=== PATIENT | male | born 1945 | race Caucasian/White ===

== ENCOUNTER 2023-12-01 08:26 | Emergency (ER) | payer OTHER, SELFPAY ==
[2023-12-01 08:30] VITALS: BP 131/75
--- NOTE | 2023-12-01 08:52 | ED.GENMED ---
History of Present Illness
General
Chief Complaint: Chest Pain
Source: patient
Time Seen by Provider: 12/01/23 08:51
Nursing documentation reviewed up to this point in time: agreed with
History of Present Illness
History of Present Illness:
78-year-old male with past medical history of MT sleep apnea V. tach with AICD and status post ablation, pneumonia in 2020/sepsis systolic heart failure
presents to the ER for evaluation of left-sided chest pain. Patient reports he was awoken around 3 AM with left-sided stabbing chest discomfort which has been intermittent since. He presently has pain when taking a deep breath. He denies any
actual shortness of breath. This morning he did cough up about a dime size area blood which is what prompted him to come to the ER. He is on ASA but no other blood thinners.
Past History
Past History
ED Past Medical History: CAD (ischemic cardiomyopathy with multiple episodes of cardiac arrest), Hypercholesterolemia, MT, Hypothyroidism, Psychiatric (major depression), Other (cholecystitis, heart failure, V. tach) and Other (obstructive sleep
apnea)
ED Past Surgical History: Appendectomy, Cardiac (heart attack, biventricular ICD/pacemaker, LAD stent placement), Orthopedic (cervical laminectomy), Tonsilectomy and Other (hemorrhoidectomy, umbilical and inguinal hernia repairs)
Social History
Tobacco: Former smoker
Alcohol: None
Drug: None
Personal:
Living: with family
Employment: Retired
Family History
Family History: Other (reviewed and Noncontributory)
Review of Systems
Review of Systems
Allergies reviewed?: Yes
Constitutional: Reports no symptoms; Denies fever, fatigue or chills
Respiratory: Reports hemoptysis and other (left side chest pain with deep breath )
Cardiac: Reports other (see above )
ABD/GI: Reports no symptoms
: Reports no symptoms
Musculoskeletal: Reports no symptoms
Skin: Reports no symptoms
Psychiatric: Reports no symptoms
Phy Exam
General Physical Exam
General Presentation: no apparent distress
General age: appears stated age
General Skin: warm and dry
General Habitus: normal
General Mental: alert
General Hydration: appears well hydrated
Cardiovascular Exam
Cardiovascular Exam: regular rate/rhythm, no murmur and normal peripheral pulses
Pulmonary Exam
Pulmonary Exam: no respiratory distress and other (slight crackles b/l bases )
Neurological Exam
Neurological Exam: alert and oriented x3
Musculoskeletal Exam
Musculoskeletal Exam: full ROM
Skin Exam
Skin Exam: normal color and warm/dry
Psychiatric Exam
Psychiatric Exam: normal mood/affect
Scores
Heart Score for Chest Pain Patients
STEMI patient?: Not applicable
Course
Orders/Labs/Results
Orders:
Orders
12/01/23 08:27
EKG [Electrocardiogram (*1)] Urgent
Reason for Study: Chest Pain
EKG- Treatment ONCE
12/01/23 08:52
Interrogate Pacemaker- Treatment ONCE
12/01/23 09:05
CT Chest Pe Study Urgent
Comment:
Reason For Exam: chest pain/hemoptysis
0.9% Sodium Chloride 1000 ml [Nss] 1,000 ml IV BOLUS
12/01/23 09:06
Cardiac Monitoring- Treatment ONCE
12/01/23 09:14
Complete Blood Count/With Diff Urgent
Comprehensive Metabolic Panel Urgent
Troponin I Urgent
12/01/23 11:06
CefTRIAXone [Rocephin] 1,000 mg IV NOW STA
12/01/23 11:07
Azithromycin 500 mg/250 ml [Zithromax Infusion] 500 mg in 250 ml IV NOW
12/01/23 12:03
PULMONARY CONSULT Routine
Consulting Provider: Humberto Harding
Was physician already notified: Yes
12/01/23 12:14
Acetaminophen [Tylenol] 1,000 mg PO NOW STA
12/01/23 15:34
Ibuprofen [Motrin] 600 mg PO NOW STA
Abnormal Lab Results
12/01/23
09:14
RBC 3.92 L 10^6/uL
(4.70-6.10)
Hgb 12.3 L g/dL
(13.0-18.0)
Hct 36.0 L %
(39.0-52.0)
MCH 31.4 H pg
(27.0-31.0)
Absolute Monos (auto) 0.8 H 10^3/uL
(0.1-0.6)
Monocytes % 13.5 H %
(1.7-9.3)
AST 12 L U/L
(17-59)
12/01/23 09:14
12/01/23 09:14
Vital Signs
Initial and Last Documented VS:
Initial Vital Signs
Temp Pulse Resp BP Pulse Ox
97.7 F 84 18 131/75 98
12/01/23 08:30 12/01/23 08:30 12/01/23 08:30 12/01/23 08:30 12/01/23 08:30
Last Documented Vital Signs
Temp Pulse Resp BP Pulse Ox
97.7 F 79 16 123/86 96
12/01/23 08:30 12/01/23 14:05 12/01/23 14:05 12/01/23 12:00 12/01/23 14:05
Welder Helper consulted with Physician
Welder Helper consulted with physician?: Yes
Name of Physician Consulted: laurie
MDM/Problems Addressed
Differential Diagnosis Includes:
Not limited to PE, pneumonia, chest wall pain
MDM/Problems Addressed:
As documented patient is a 78-year-old male with significant medical history noted blood thinners presenting for left-sided pleuritic pain that started at 3 AM worse with taking a deep breath and an episode of hemoptysis today. Patient was
nontachycardic nonhypoxic no fevers no recent cough. CAT scan was done to rule out PE however there is consolidation in the left lower lobe consistent for acute endobronchial impaction/pneumonia or left lobe cancer. Will treat with IV antibiotics
and admit for continued evaluation.
Patient was seen by admitting hospitalist who does feel that patient likely can be discharged and manage as an outpatient. as requested by admitting hospitalist pulmonology Dr. Rafa bustillos did evaluate patient and does feel the patient can go home on
Zithromax and Motrin however Zithromax does interfere with patient's amiodarone with prolongation of QT interval and QTc is 500. Will change to doxycycline as discussed with pulmonary. Patient is to follow-up with Dr. Fagan in the office and get
repeat CT chest in 6 weeks. Patient is to return if any worsening symptoms
Chronic conditions affecting care:
History of sepsis/pneumonia in 2019/significant cardiac history AICD V. tach
*Radiology
Radiology exam reviewed: radiology read reviewed
*Pulse Oximetry
Patient hypoxic: no
*Dump Grader Interpretation
Rate: normal
Heart Rate: 86
Rhythm: other (av paced )
*Critical Care Note
Total Time (30-74mins, 75-104mins- exclusive of procedures): Not Applicable
ED Attending Note
-
Portions of this chart may have been created with voice recognition software.� Occasional wrong word or��sound alike� substitutions may have occurred due to the inherent limitations of voice recognition software.
Discharge Plan
Departure
Patient Disposition: Home (Routine Discharge)
Date of Disposition: 12/01/23
Time of Disposition: 11:24
Admit to doctor: hospitalist
Patient with high blood pressure during this ER visit?: Yes
Covid-19: Not Applicable
Discharge Problem:
Pneumonia, Hemoptysis
Instructions: Pneumonia, Adult (DC), BLOOD PRESSURE
Prescriptions:
New
azithromycin [Zithromax] 250 mg tablet
250 mg PO DAILY Qty: 4 0RF
doxycycline hyclate 100 mg capsule
100 mg PO DAILY Qty: 14 0RF
No Action
escitalopram oxalate 10 MG tablet
10 mg PO DAILY
multivitamin 1 EACH tablet
1 ea PO DAILY
amiodarone [Pacerone] 200 MG tablet
200 mg PO SUTUTHSA
aspirin 81 MG tablet,delayed release (DR/EC)
81 mg PO DAILY
Repatha Syringe 140 mg/mL Syringe
140 mg SC Q2W
levothyroxine [Synthroid] 100 mcg Tablet
100 mcg PO DAILY
lisinopril 10 mg tablet
10 mg PO Q48H
Referrals:
Philippe Fagan MD [Active] -
Humberto Harding MD [Active] -
UNKNOWN - PT DOES,NOT KNOW [Family Provider] -
Activity Restrictions/Additional Instructions:
As discussed you were given doses of antibiotics here in the ER however a prescription for antibiotics was sent to your pharmacy take as directed. Please call Dr. Fagan's office on Monday morning for appointment for reevaluation the next several
days. You will also need a repeat CAT scan of the chest in the next 6 weeks.
Return if any worsening of symptoms if shortness of breath increased pain fever chills or if any increased or continued coughing of blood.
Interventions
Interventions:
*Risk Screen - Suicide Last Done: 12/01/23 08:30
*Neglect/Abuse Screening Last Done: 12/01/23 08:30
*ED COVID-19 Vaccine History Last Done: 12/01/23 08:30
*Nursing Disposition Last Done: 12/01/23 16:11
ED- Cardiac Assessment Last Done: 12/01/23 09:03
Discharge Date and Time
Discharge Date/Time: 12/01/23 16:11
Print Language: LEBANESE
[2023-12-01 09:03] VITALS: BMI 31.1
[2023-12-01] MEDS: NSS 1000 IV (09:19)
[2023-12-01 09:25] LABS: % Basophils 0.7 % (0-2); % Eosinophils 4.9 % (0-6); % Immature Granulocytes 0.5 % (0-0.5); % Lymphocytes 22.1 % (20.5-51.1); % Monocytes 13.5 % (1.7-9.3); % Neutrophils 58.3 % (42.2-75.2); Absolute Eosinophils 0.3 10^3/uL (0-0.7); Absolute Lymphocytes 1.3 10^3/uL (1.2-3.4); Absolute Monocytes 0.8 10^3/uL (0.1-0.6); Absolute Neutrophils 3.5 10^3/uL (1.4-6.5); Hemoglobin 12.3 g/dL (13.0-18.0); Mean Corp Hgb Conc. 34.2 g/dL (33.0-37.0); Mean Corpuscular Hgb 31.4 pg (27.0-31.0); Mean Corpuscular Volume 91.8 fL (80.0-94.0); Mean Platelet Volume 10.3 fL (7.4-10.4); Nucleated Red Blood Cells % 0 % (-); Platelet Count 204 10^3/uL (130-400); Red Blood Cell Count 3.92 10^6/uL (4.70-6.10); Red Cell Dist. Width 13.9 % (11.5-14.5); White Blood Cell Count 5.9 10^3/uL (4.8-10.8)
[2023-12-01 09:40] LABS: ALT (SGPT) 13 U/L (0-50); AST (SGOT) 12 U/L (17-59); Albumin 3.9 g/dl (3.5-5.0); Alkaline Phosphatase 67 U/L (38-126); Blood Urea Nitrogen 19 mg/dl (9-20); Calcium 9.1 mg/dl (8.4-10.2); Carbon Dioxide 26 mmol/L (22-30); Chloride 107 mmol/L (98-107); Estimated Creatinine Clearance 81 ml/min; Glucose 92 mg/dl (70-99); Potassium 4.1 mmol/L (3.5-5.1); Sodium 141 mmol/L (135-145); Total Bilirubin 0.8 mg/dl (0.2-1.3); Total Protein 6.4 g/dl (6.3-8.2); eGFR > 60.00
[2023-12-01 09:50] LABS: Troponin I < 0.012 ng/ml
[2023-12-01 10:15] VITALS: BP 129/86
[2023-12-01 11:00] VITALS: BP 132/83
[2023-12-01] MEDS: ROCEPHIN 1000 MG IV (11:31)
[2023-12-01] MEDS: ZITHROMAX INFUSION 250 IV (11:38)
[2023-12-01 12:00] VITALS: BP 123/86
[2023-12-01] MEDS: TYLENOL 1000 MG PO (12:16)
[2023-12-01] MEDS: MOTRIN 600 MG PO (15:37)
--- NOTE | 2023-12-01 15:37 | CON.HOSP ---
Family Physician
-
Family Physician: NOT KNOW UNKNOWN - PT DOES
Chief Complaint
-
Hemoptysis, left-sided chest pain
History of Present Illness
78-year-old male came into the emergency room today for evaluation of left-sided chest pain and 1 episode of hemoptysis. Symptoms woke him up early this morning around 3 AM. Denies any shortness of breath or significant cough. Denies fevers,
chills, night sweats, anorexia, weight loss. Known to the pulmonary service, sees a concrete form setter once a year. Has a history of incompletely treated latent tuberculosis.
No known history of malignancy. Remote history of smoking.
Medical History
Past Medical History
Past Medical History: Reports Other
Additional Past Medical History:
CAD
AIDE
Chronic heart failure reduced EF
Hyperlipidemia
Hypothyroidism
Major depression
Multiple episodes of cardiac arrest
Past Surgical History: Reports Appendectomy and Other
Additional Past Surgical History:
Biventricular ICD
Cervical laminectomy
Tonsillectomy
Umbilical and inguinal hernia repairs
Hemorrhoidectomy
Social History
Tobacco: Former Smoker
Alcohol: Occasional
Drug: None
Personal:
Living: With Family
Family History
Family History: Reviewed & Not Pertinent
Allergies / Home Medications
Allergies reflects when Allergies were last updated in [facility].
Home Medications with original date entered in [facility]
Allergy/Medication List:
Allergies
Allergy/AdvReac Type Severity Reaction Status Date / Time
Ckvxvqw-GAP-LtQ Reductase Allergy Leg Cramps Verified 12/01/23 08:39
Inhibitor
[Ktpohov-Jsc-Emw Reductase
Inhibitor]
Home Medications
escitalopram oxalate 10 mg tablet 10 mg PO DAILY High cholesterol 05/11/19
amiodarone 200 mg tablet (Pacerone) 200 mg PO SUTUTHSA Arrhythmia 11/24/19
aspirin 81 mg tablet,delayed release 81 mg PO DAILY Blood clot prevention/tx 11/24/19
multivitamin 1 ea PO DAILY Supplement 11/24/19
evolocumab 140 mg/mL subcutaneous syringe (Repatha Syringe) 140 mg SC Q2W 07/05/22
azithromycin 250 mg tablet (Zithromax) 250 mg PO DAILY #4 tabs 12/01/23
levothyroxine 100 mcg tablet (Synthroid) 100 mcg PO DAILY 12/01/23
lisinopril 10 mg tablet 10 mg PO Q48H 12/01/23
Review of Systems
-
History Source: Patient
A 12 point Review of Systems was completed except as noted: Yes
Respiratory: Reports Cough and Hemoptysis
Cardiac: Reports Chest Pain
Physical Exam
Vital Signs
Vital Signs
Temp Pulse Resp BP Pulse Ox
97.7 F 79 16 123/86 96
12/01/23 08:30 12/01/23 14:05 12/01/23 14:05 12/01/23 12:00 12/01/23 14:05
Physical Exam
General: Well Developed, Well Nourished, No Apparent Distress and Comfortable
HEENT: Normocephalic, Anicteric and Moist Mucous Membranes
Respiratory: Clear
Cardiac: S1/S2 and Regular Rhythm
GI: Soft, Non Tender and Non Distended
Musculoskeletal: No Clubbing, No Cyanosis and No Edema
Skin: Warm and Dry
Neuro: AO x 3
Hematologic/Lymphatic: No Lymphadenopathy
Psych: Calm
Laboratory Results
-
Laboratory Results
12/01/23 09:14
12/01/23 09:14
Total Bilirubin 0.8 mg/dl (0.2-1.3) 12/01/23 09:14
AST 12 U/L (17-59) L 12/01/23 09:14
ALT 13 U/L (0-50) 12/01/23 09:14
Alkaline Phosphatase 67 U/L (38-126) 12/01/23 09:14
Troponin I < 0.012 ng/ml 12/01/23 09:14
Impression / Plan
-
Left-sided chest pain -pleuritic. No evidence of pulmonary embolism on CT. Likely musculoskeletal pain. No rash on exam.
Watch for any evolving vesicles consistent with shingles. Can use NSAIDs as needed.
Lung nodule -noted on CT chest, 2 cm nodular airspace consolidation in the anterior medial basilar segment of the left lower lobe. Mild left-sided mediastinal and hilar lymphadenopathy noted. Moderate amount of dependent groundglass opacities in
the left upper and lower lobes.
Differential diagnosis includes infection versus malignancy. Discussed with pulmonary, Dr. Wiley. Plan to start a course of azithromycin for [address] chest in 6 to 8 weeks as an outpatient. Outpatient pulmonary follow-up.
Vital signs are normal, not hypoxic. WBC count is normal. No signs of sepsis.
Hemoptysis, mild -treat conservatively.
Okay to discharge from the emergency room. Discussed with pulmonary and ED department. Follow-up with PCP and pulmonary.
== END 2023-12-01 16:11 | disposition home or self-care (01) ==
LOC: EMR 08:26
PROVIDERS: Nurse Practitioner; CONSULT PHYSICIAN Internal Medicine Critical Care Medicine; EMERGENCY PHYSICIAN Emergency Medicine
DX: J18.9 Pneumonia, unspecified organism (principal); R04.2 Hemoptysis; I25.2 Old myocardial infarction; G47.33 Obstructive sleep apnea (adult) (pediatric); I25.10 Atherosclerotic heart disease of native coronary artery without angina pectoris; I25.5 Ischemic cardiomyopathy; I50.22 Chronic systolic (congestive) heart failure; E03.9 Hypothyroidism, unspecified; E78.00 Pure hypercholesterolemia, unspecified; Z79.82 Long term (current) use of aspirin; Z79.890 Hormone replacement therapy; Z86.74 Personal history of sudden cardiac arrest; Z87.891 Personal history of nicotine dependence; Z88.8 Allergy status to other drugs, medicaments and biological substances; Z90.49 Acquired absence of other specified parts of digestive tract; Z90.89 Acquired absence of other organs; Z95.5 Presence of coronary angioplasty implant and graft; Z95.810 Presence of automatic (implantable) cardiac defibrillator
CPT/HCPCS: 99284; 96365; 96375; 71275; 80053; 84484; 85025; 93005; Q9967

== ENCOUNTER → 2024-01-08 12:58 | Outpatient (REF) | payer OTHER, SELFPAY | LOC: RCS 12:58 | PROVIDERS: ATTENDING PHYSICIAN Nurse Practitioner Gerontology; FAMILY PHYSICIAN Internal Medicine | DX: I95.9 Hypotension, unspecified (principal); I50.22 Chronic systolic (congestive) heart failure; I25.5 Ischemic cardiomyopathy; I35.0 Nonrheumatic aortic (valve) stenosis | CPT/HCPCS: 93306 ==

== ENCOUNTER 2024-01-20 23:37 | Emergency (ER) | payer OTHER, SELFPAY ==
[2024-01-20 23:40] VITALS: BP 126/83
[2024-01-21] VITALS: BP 123/70
[2024-01-21 00:19] VITALS: BMI 30.1
[2024-01-21 00:48] LABS: % Basophils 0.5 % (0-2); % Eosinophils 5.5 % (0-6); % Immature Granulocytes 1.2 % (0-0.5); % Neutrophils 44.8 % (42.2-75.2); ALT (SGPT) 23 U/L (0-50); AST (SGOT) 19 U/L (17-59); Absolute Eosinophils 0.2 10^3/uL (0-0.7); Absolute Immature Granulocytes 0.1 10^3/uL (0-0.05); Absolute Lymphocytes 1.4 10^3/uL (1.2-3.4); Absolute Monocytes 0.7 10^3/uL (0.1-0.6); Absolute Neutrophils 1.9 10^3/uL (1.4-6.5); Alkaline Phosphatase 88 U/L (38-126); Blood Urea Nitrogen 17 mg/dl (9-20); Calcium 8.8 mg/dl (8.4-10.2); Carbon Dioxide 22 mmol/L (22-30); Chloride 109 mmol/L (98-107); Estimated Creatinine Clearance 64 ml/min; Glucose 97 mg/dl (70-99); Hematocrit 38.8 % (39.0-52.0); Hemoglobin 13.5 g/dL (13.0-18.0); Lipase 94 U/L (23-300); Mean Corp Hgb Conc. 34.8 g/dL (33.0-37.0); Mean Corpuscular Hgb 32.5 pg (27.0-31.0); Mean Corpuscular Volume 93.3 fL (80.0-94.0); Mean Platelet Volume 10.7 fL (7.4-10.4); Nucleated Red Blood Cells % 0 % (-); Platelet Count 168 10^3/uL (130-400); Potassium 3.6 mmol/L (3.5-5.1); Red Blood Cell Count 4.16 10^6/uL (4.70-6.10); Red Cell Dist. Width 13.9 % (11.5-14.5); Sodium 141 mmol/L (135-145); Total Bilirubin 0.3 mg/dl (0.2-1.3); Total Protein 6.4 g/dl (6.3-8.2); White Blood Cell Count 4.3 10^3/uL (4.8-10.8); eGFR > 60.00
[2024-01-21 01:00] VITALS: BP 117/64
[2024-01-21 01:00] LABS: Troponin I < 0.012 ng/ml
--- NOTE | 2024-01-21 01:06 | ED.GENMED ---
History of Present Illness
General
Chief Complaint: Abdominal Symptoms
Source: patient
Exam Limitations: none
Time Seen by Provider: 01/21/24 00:04
History of Present Illness
History of Present Illness:
79-year-old male with history of chronic bronchitis pneumonia since coronary artery disease has pacemaker presents with episode of shortness of breath earlier. He has been dealing with GI upset over the past 3 to 4 days. Today he could not seem to
calm down and he was laying in bed and got to the point where he was having trouble breathing and is hyperventilating. There is no chest pain. She presented here for evaluation. Time of my exam he states he feels much better.
Past History
Past History
ED Past Medical History: CAD (ischemic cardiomyopathy with multiple episodes of cardiac arrest), Hypercholesterolemia, [place], Hypothyroidism, Psychiatric (major depression), Other (cholecystitis, heart failure, V. tach) and Other (obstructive sleep
apnea)
ED Past Surgical History: Appendectomy, Cardiac (heart attack, biventricular ICD/pacemaker, LAD stent placement), Orthopedic (cervical laminectomy), Tonsilectomy and Other (hemorrhoidectomy, umbilical and inguinal hernia repairs)
Social History
Tobacco: Former smoker
Alcohol: None
Drug: None
Personal:
Living: with family
Employment: Retired
Family History
Family History: Other (reviewed and Noncontributory)
Phy Exam
Physical Exam
Physical Exam:
General: Well-appearing male no acute respiratory distress
HEENT: Normocephalic atraumatic
Heart: Regular rate and rhythm
Lungs: Clear no wheeze
Abdomen is soft nontender normal bowel sound
Extremities: No cyanosis or edema
Skin is warm no rash
Course
Orders/Labs/Results
Orders:
Orders
01/20/24 23:38
Electrocardiogram (*1) Urgent
Reason for Study: Shortness of Breath
EKG- Treatment ONCE
01/21/24 00:29
Complete Blood Count/With Diff Urgent
Comprehensive Metabolic Panel Urgent
Lipase Urgent
Troponin I Urgent
01/21/24 00:45
CR Chest - 2 Views Urgent
Comment:
Reason For Exam: sob
Abnormal Lab Results
01/21/24
00:29
WBC 4.3 L 10^3/uL
(4.8-10.8)
RBC 4.16 L 10^6/uL
(4.70-6.10)
Hct 38.8 L %
(39.0-52.0)
MCH 32.5 H pg
(27.0-31.0)
MPV 10.7 H fL
(7.4-10.4)
Abs Immat Gran (auto) 0.1 H 10^3/uL
(0-0.05)
Absolute Monos (auto) 0.7 H 10^3/uL
(0.1-0.6)
Immature Gran % 1.2 H %
(0-0.5)
Monocytes % 15.0 H %
(1.7-9.3)
Chloride 109 H mmol/L
(98-107)
01/21/24 00:29
01/21/24 00:29
Vital Signs
Initial and Last Documented VS:
Initial Vital Signs
Temp Pulse Resp BP Pulse Ox
97.9 F 82 20 126/83 99
01/20/24 23:40 01/20/24 23:40 01/20/24 23:40 01/20/24 23:40 01/20/24 23:40
Last Documented Vital Signs
Temp Pulse Resp BP Pulse Ox
97.9 F 70 27 122/71 95
01/20/24 23:40 01/21/24 02:00 01/21/24 02:00 01/21/24 02:00 01/21/24 02:00
MDM/Problems Addressed
Differential Diagnosis Includes:
Episode of shortness of breath now resolved. Question electrolyte abnormality versus pneumonia versus heart failure versus anxiety reaction
Will check labs, troponin EKG chest x-ray
*Critical Care Note
Total Time (30-74mins, 75-104mins- exclusive of procedures): Not Applicable
Update Note
Update Note:
Patient reevaluated no respiratory distress heart rate normal not hypoxic blood pressure stable chest x-ray clear labs reviewed and are negative. Pacemaker interrogation showed no significant events. No indication for any further intervention
admission to the hospital. Stable for discharge
ED Attending Note
-
Portions of this chart may have been created with voice recognition software.� Occasional wrong word or��sound alike� substitutions may have occurred due to the inherent limitations of voice recognition software.
Discharge Plan
Departure
Patient Disposition: Home (Routine Discharge)
Date of Disposition: 01/21/24
Time of Disposition: 02:30
Patient with high blood pressure during this ER visit?: No
Discharge Problem:
Fatigue
Instructions: Abdominal Pain
Prescriptions:
No Action
escitalopram oxalate 10 MG tablet
10 mg PO DAILY
multivitamin 1 EACH tablet
1 ea PO DAILY
amiodarone [Pacerone] 200 MG tablet
200 mg PO SUTUTHSA
aspirin 81 MG tablet,delayed release (DR/EC)
81 mg PO DAILY
Repatha Syringe 140 mg/mL Syringe
140 mg SC Q2W
levothyroxine [Synthroid] 100 mcg Tablet
100 mcg PO DAILY
lisinopril 10 mg tablet
10 mg PO Q48H
azithromycin [Zithromax] 250 mg tablet
250 mg PO DAILY Qty: 4 0RF
doxycycline hyclate 100 mg capsule
100 mg PO DAILY Qty: 14 0RF
Referrals:
Hubert Mariscal MD [Family Provider] -
Activity Restrictions/Additional Instructions:
Please return here for worsening symptoms otherwise follow-up with your doctor
Interventions
Interventions:
*Risk Screen - Suicide Last Done: 01/20/24 23:40
*General Assessment Last Done: 01/20/24 23:40
*Neglect/Abuse Screening Last Done: 01/20/24 23:40
ED- Fall Risk Assessment Last Done: 01/21/24 00:34
*ED COVID-19 Vaccine History Last Done: 01/20/24 23:40
ZT-Lplvtn-Kfsczlnivh Assessment Last Done: 01/21/24 00:30
Discharge Date and Time
Print Language: [id number]
[2024-01-21 02:00] VITALS: BP 122/71
[2024-01-21 03:00] VITALS: BP 106/56
== END 2024-01-21 03:15 | disposition home or self-care (01) ==
LOC: EMR 23:37
PROVIDERS: Physician Assistant; EMERGENCY PHYSICIAN Emergency Medicine; FAMILY PHYSICIAN Internal Medicine
DX: R53.83 Other fatigue (principal); R06.02 Shortness of breath; I25.10 Atherosclerotic heart disease of native coronary artery without angina pectoris; E78.00 Pure hypercholesterolemia, unspecified; E03.9 Hypothyroidism, unspecified; I25.2 Old myocardial infarction; Z86.74 Personal history of sudden cardiac arrest; Z87.891 Personal history of nicotine dependence; Z95.5 Presence of coronary angioplasty implant and graft; Z95.0 Presence of cardiac pacemaker; G47.33 Obstructive sleep apnea (adult) (pediatric)
CPT/HCPCS: 99285; 93288; 71046; 80053; 83690; 84484; 85025; 93005

== ENCOUNTER → 2024-01-31 09:56 | Outpatient (REF) | payer OTHER, SELFPAY | LOC: HWRAD 09:56 | PROVIDERS: ATTENDING PHYSICIAN Internal Medicine Critical Care Medicine; FAMILY PHYSICIAN Internal Medicine | DX: R91.1 Solitary pulmonary nodule (principal); A31.0 Pulmonary mycobacterial infection; Z22.7 Latent tuberculosis | CPT/HCPCS: 71250 ==

== ENCOUNTER 2024-12-16 10:52 | Emergency (ER) | payer OTHER, SELFPAY ==
[2024-12-16 11:12] VITALS: BP 144/82
[2024-12-16 11:41] LABS: Hematocrit 38.6 % (39.0-52.0); Hemoglobin 12.9 g/dL (13.0-18.0); Mean Corp Hgb Conc. 33.4 g/dL (33.0-37.0); Mean Corpuscular Volume 93.2 fL (80.0-94.0); Nucleated Red Blood Cells % 0 % (-); Platelet Count 244 10^3/uL (130-400); Red Cell Dist. Width 14.2 % (11.5-14.5)
[2024-12-16 12:00] LABS: INR 1.08; PT 14.3 Sec (11.4-14.6)
[2024-12-16 12:02] LABS: APTT 32.7 Sec (23.4-35.0)
[2024-12-16 12:08] LABS: Troponin I < 0.012 ng/ml
[2024-12-16 12:23] LABS: ALT (SGPT) 12 U/L (0-50); AST (SGOT) 12 U/L (17-59); Albumin 4.2 g/dl (3.5-5.0); Alkaline Phosphatase 81 U/L (38-126); Blood Urea Nitrogen 18 mg/dl (9-20); Calcium 9.0 mg/dl (8.4-10.2); Carbon Dioxide 23 mmol/L (22-30); Chloride 107 mmol/L (98-107); Glucose 94 mg/dl (70-99); Potassium 4.4 mmol/L (3.5-5.1); Sodium 136 mmol/L (135-145); Total Protein 7.2 g/dl (6.3-8.2); eGFR > 60.00
[2024-12-16 14:34] VITALS: BP 146/77
[2024-12-16 15:00] VITALS: BP 136/79
--- NOTE | 2024-12-16 15:04 | ED.GENMED ---
History of Present Illness
General
Chief Complaint: Chest Pain
Time Seen by Provider: 12/16/24 15:03
History of Present Illness
History of Present Illness:
FOCUSED PAST MEDICAL HISTORY
- [place], multiple cardiac arrests has pacer defibrillator, cardiomyopathy, aortic stenosis
REVIEW OF OLD RECORDS
- I reviewed the cath report from Dr. Fowler in June 2022, at that time inferior akinesis noted with a EF of 36% and mild residual CAD with patent stents in the LAD, circumflex and RCA vessels without significant progression in comparison to 2019
- The chest x-ray that was obtained earlier today was read by radiology and I agree with read of probable basilar atelectasis/scarring but cannot rule out a superimposed pneumonia at the left base
Note:
CHIEF COMPLAINT(S)
Pain while breathing on the left side of the chest.
HISTORY OF PRESENT ILLNESS
The patient is a 79-year-old male presenting with pain during respiration, primarily localized to the left side of the chest. He has a history of similar episodes approximately four years ago, attributed to scarring and fluid accumulation seen on a
prior computed tomography scan. At that time, he was treated with Doxycycline for a presumed bacterial infection, possibly pneumonia, and reported symptomatic improvement following treatment. The current episode of pain began acutely without milder
symptoms in preceding days and is exacerbated by deep breathing. There is no associated abdominal pain. The patient reports occasional shortness of breath but denies productive cough or leg swelling. He has a significant cardiac history including
past cardiac arrests approximately 20 years ago, with no new cardiac events or interventions since then.
The patient reports a known history of latent tuberculosis.
ADDITIONAL HISTORY OBTAINED FROM SOURCES OTHER THAN THE PATIENT
According to the patient, this episode resembles his past experience which was previously managed with Doxycycline.
EXTERNAL RECORDS REVIEWED
The patient presented from urgent care, where a chest X-ray was performed. However, no radiologist report or imaging records were available during this encounter.
PAST MEDICAL AND SURGICAL HISTORY
The patient has a history of cardiac arrest approximately 20 years ago. There is also a history of latent tuberculosis and a fungal infection noted in previous medical records.
CHRONIC MEDICAL CONDITIONS SIGNIFICANTLY AFFECTING CARE
History of cardiac arrests and management with a pacemaker/defibrillator.
PHYSICAL EXAM
General: Alert, no acute distress.
Skin: Warm, dry.
Head: Normocephalic, atraumatic.
Neck: Supple, trachea midline.
Eye, Ears, Nose, Mouth, and Throat: Oral mucosa moist.
Cardiovascular: Normal peripheral perfusion, no edema, palpable device in the left anterior chest wall.
Respiratory: Respirations are non-labored, tenderness exacerbated by deep breaths.
Gastrointestinal: Abdomen nondistended.
Back: Normal range of motion, normal alignment.
Musculoskeletal: No tenderness to palpation of the left anterior chest wall.
Neurological: Alert and oriented to person, place, time, and situation. No focal neurological deficit observed.
Psychiatric: Cooperative, appropriate mood and affect.
PLAN
The plan includes performing a new chest X-ray at this facility to allow a radiologist to review for diagnostic clarification. Consideration of possible recurrence of prior pulmonary conditions, and evaluation for potential bacterial infection or
complications such as pleural effusion, given past episodes.
DIFFERENTIAL DIAGNOSIS
The Differential Diagnosis includes, in no particular order and is not limited to:
1. Pneumonia
2. Pleuritis
3. Pulmonary Embolism
4. Costochondritis
5. Lung Cancer
6. Congestive Heart Failure
7. Chronic Obstructive Pulmonary Disease exacerbation
8. Interstitial Lung Disease
9. Tuberculosis
10. Aspergillosis
Disposition:
SUMMARY OF ENCOUNTER
The patient, a 79-year-old male, presented to the emergency department with left-sided chest pain during respiration. Past medical history includes prior episodes of similar symptoms attributed to pulmonary scarring and fluid accumulation. A
previous treatment with doxycycline was effective. The patient recently had a chest x-ray suggesting possible superimposed pneumonia but no evidence of myocardial infarction. After discussing management options, including a possible CT scan to rule
out a pulmonary embolism, both the patient and I agreed to proceed with doxycycline treatment given past improvement with this antibiotic. The patient also requested pain management, and after discussing options, was provided a prescription for
tramadol.
ASSESSMENT
The patient likely has a recurrent pulmonary issue, possibly pneumonia, given the radiologists x-ray interpretation and his past medical response to doxycycline.
PLAN
Administer a dose of doxycycline immediately. Prescribe doxycycline for 7 days and tramadol for pain management. Advise the patient to return if symptoms worsen or do not improve.
INDEPENDENT REVIEW OF LABS AND INTERPRETATION OF TESTS
My independent review of previous cardiac markers indicates no evidence of myocardial infarction.
INDEPENDENT REVIEW OF RADIOLOGY
My independent chest x-ray interpretation aligns with the radiologists: suspicion of superimposed pneumonia or scarring on the left side.
PATIENT EDUCATION AND COUNSELING
The patient was educated on signs of worsening respiratory conditions and instructed to seek follow-up care if symptoms do not improve after antibiotic therapy.
FOLLOW-UP INSTRUCTIONS
Return to care if symptoms persist or worsen despite treatment.
MEDICATION RECONCILIATION
- Administered: Doxycycline 100 mg in the emergency department.
- Prescribed: Doxycycline (oral, for seven days), Tramadol for pain management.
MEDICAL DECISION MAKING
-Complexity of Data Reviewed: Chronic conditions affecting care include history of latent tuberculosis, aspergillosis, cardiac arrest, and pulmonary scarring. Differential diagnoses considered were pneumonia, pleuritis, pulmonary embolism,
costochondritis, lung cancer, congestive heart failure, chronic obstructive pulmonary disease exacerbation, interstitial lung disease, tuberculosis, and aspergillosis.
-Data:
Category 1
Previous external records reviewed included a chest x-ray from an urgent care facility in the [facility], which indicated possible pneumonia.
Category 2
Clinical information was reinforced by the patients recounting of past medical history and similarities with current symptoms.
-Risk:
Consideration of Admission/Observation: Escalation of care was considered; however, it is believed the patient is safe for outpatient management with close follow-up. Reasoning: no acute life-threatening conditions were detected, the symptoms are
currently manageable, and the patient understands to return if necessary.
DIAGNOSIS
1. Pneumonia, suspected (ICD-10: J18.9)
2. Pain in the thorax (ICD-10: R07.89)
RADIOLOGY
- See above
EKG
- AV paced 80
LABS
- White count 8.3, hemoglobin 12.9, chemistries unremarkable, troponin less than 0.012, BNP 626
Considered CTA to evaluate for PE however the patient tells me he had the exact same presentation a few years ago in which there was concern for the possibility of pneumonia. This is a very similar presentation and chest x-ray suggest the possible
of pneumonia on the left side. He is afebrile and white count is normal. When he had a similar presentation he was given doxycycline which markedly improved his symptoms. We agreed to hold off on CTA study and try doxycycline at first as this has
helped him for similar presentation in the past. He was instructed return here if worse.
Past History
Past History
ED Past Medical History: CAD (ischemic cardiomyopathy with multiple episodes of cardiac arrest), Hypercholesterolemia, [place], Hypothyroidism, Psychiatric (major depression), Other (cholecystitis, heart failure, V. tach) and Other (obstructive sleep
apnea)
ED Past Surgical History: Appendectomy, Cardiac (heart attack, biventricular ICD/pacemaker, LAD stent placement), Orthopedic (cervical laminectomy), Tonsilectomy and Other (hemorrhoidectomy, umbilical and inguinal hernia repairs)
Social History
Tobacco: Former smoker
Alcohol: None
Drug: None
Personal:
Living: with family
Employment: Retired
Family History
Family History: Other (reviewed and Noncontributory)
Phy Exam
Physical Exam
Physical Exam:
See HPI
Scores
Heart Score for Chest Pain Patients
STEMI patient?: Not applicable
Course
Orders/Labs/Results
Orders:
Orders
12/16/24 11:18
Electrocardiogram (*1) Urgent
Reason for Study: Chest Pain
EKG- Treatment ONCE
12/16/24 11:33
Complete Blood Count/With Diff Urgent
Comprehensive Metabolic Panel Urgent
NT-proBNP Urgent
Protime/PTT Urgent
Troponin I Urgent
12/16/24 15:31
Doxycycline [Vibramycin] 100 mg PO NOW STA
Abnormal Lab Results
12/16/24
11:33
RBC 4.14 L 10^6/uL
(4.70-6.10)
Hgb 12.9 L g/dL
(13.0-18.0)
Hct 38.6 L %
(39.0-52.0)
MCH 31.2 H pg
(27.0-31.0)
Absolute Monos (auto) 0.9 H 10^3/uL
(0.1-0.6)
Lymphocytes % 14.3 L %
(20.5-51.1)
Monocytes % 10.2 H %
(1.7-9.3)
AST 12 L U/L
(17-59)
12/16/24 11:33
12/16/24 11:33
Vital Signs
Initial and Last Documented VS:
Initial Vital Signs
Temp Pulse Resp BP Pulse Ox
36.3 C 76 20 144/82 97
12/16/24 11:12 12/16/24 11:12 12/16/24 11:12 12/16/24 11:12 12/16/24 11:12
Last Documented Vital Signs
Temp Pulse Resp BP Pulse Ox
36.3 C 73 26 146/77 97
12/16/24 11:12 12/16/24 14:35 12/16/24 14:35 12/16/24 14:34 12/16/24 15:07
*Pulse Oximetry
SaO2: 97
Oxygen Mode of Delivery: Room air
Patient hypoxic: no
*Critical Care Note
Total Time (30-74mins, 75-104mins- exclusive of procedures): Not Applicable
ED Attending Note
-
Portions of this chart may have been created with voice recognition software.� Occasional wrong word or��sound alike� substitutions may have occurred due to the inherent limitations of voice recognition software.
Discharge Plan
Departure
Patient Disposition: Home (Routine Discharge)
Date of Disposition: 12/16/24
Time of Disposition: 15:34
Patient with high blood pressure during this ER visit?: Yes
Discharge Problem:
Pneumonia
Instructions: Pneumonia in adults, BLOOD PRESSURE
Prescriptions:
New
doxycycline hyclate 100 mg tablet
100 mg PO BID Qty: 14 0RF
tramadol 50 mg tablet
50 mg PO Q8H PRN (Reason: Pain) Qty: 15 0RF
No Action
escitalopram oxalate 10 MG tablet
10 mg PO DAILY
multivitamin 1 EACH tablet
1 ea PO DAILY
amiodarone [Pacerone] 200 MG tablet
200 mg PO SUTUTHSA
aspirin 81 MG tablet,delayed release (DR/EC)
81 mg PO DAILY
Repatha Syringe 140 mg/mL Syringe
140 mg SC Q2W
levothyroxine [Synthroid] 100 mcg Tablet
100 mcg PO DAILY
lisinopril 10 mg tablet
10 mg PO Q48H
azithromycin [Zithromax] 250 mg tablet
250 mg PO DAILY Qty: 4 0RF
doxycycline hyclate 100 mg capsule
100 mg PO DAILY Qty: 14 0RF
Referrals:
Hubert Mariscal MD [Family Provider, Internal Medicine]
Activity Restrictions/Additional Instructions:
I sent a prescription for doxycycline and tramadol to your pharmacy. Return here if worse or other concerns. Your white blood cell count is normal. Your cardiac blood work shows no sign of heart attack or heart failure.
Interventions
Interventions:
*Risk Screen - Suicide Last Done: 12/16/24 11:17
*General Assessment Last Done: 12/16/24 14:30
*Neglect/Abuse Screening Last Done: 12/16/24 11:17
*ED COVID-19 Vaccine History Last Done: 12/16/24 14:30
*ED Influenza Vaccine History Last Done: 12/16/24 14:30
ED- Cardiac Assessment Last Done: 12/16/24 14:30
Discharge Date and Time
Print Language: GEORGIAN
[2024-12-16] MEDS: VIBRAMYCIN 100 MG PO (15:50)
== END 2024-12-16 15:45 | disposition home or self-care (01) ==
LOC: EMR 10:52
PROVIDERS: Emergency Medicine; EMERGENCY PHYSICIAN Emergency Medicine; FAMILY PHYSICIAN Internal Medicine
DX: J18.9 Pneumonia, unspecified organism (principal); I25.5 Ischemic cardiomyopathy; I35.0 Nonrheumatic aortic (valve) stenosis; I25.10 Atherosclerotic heart disease of native coronary artery without angina pectoris; I50.9 Heart failure, unspecified; E78.00 Pure hypercholesterolemia, unspecified; I25.2 Old myocardial infarction; G47.33 Obstructive sleep apnea (adult) (pediatric); E03.9 Hypothyroidism, unspecified; F32.9 Major depressive disorder, single episode, unspecified; Z79.82 Long term (current) use of aspirin; Z86.15 Personal history of latent tuberculosis infection; Z86.74 Personal history of sudden cardiac arrest; Z95.810 Presence of automatic (implantable) cardiac defibrillator; Z95.5 Presence of coronary angioplasty implant and graft; Z87.891 Personal history of nicotine dependence
CPT/HCPCS: 99284; 80053; 83880; 84484; 85025; 85610; 85730; 93005

== ENCOUNTER → 2024-12-24 16:33 | Outpatient (REF) | payer MEDICARE, SELFPAY | LOC: RAD 16:33 | PROVIDERS: ATTENDING PHYSICIAN Internal Medicine Critical Care Medicine | DX: R07.9 Chest pain, unspecified (principal); J18.9 Pneumonia, unspecified organism | CPT/HCPCS: 71046 ==